=== PATIENT | male | born 1965 | race Caucasian/White ===

== ENCOUNTER 2023-10-04 21:00 | Outpatient (OUT) | payer OTHER, SELFPAY | END 2023-10-04 21:01 | disposition home or self-care (01) | LOC: SLEEP 10-06 07:50 | PROVIDERS: Family Provider Family Medicine; PCP Psychiatry & Neurology Neurology; Visit Provider Psychiatry & Neurology Neurology | DX: G47.33 Obstructive sleep apnea (adult) (pediatric) (principal) | CPT/HCPCS: 95811 ==